=== PATIENT | male | born 1950 | race African-American/Black ===

== ENCOUNTER 2023-07-06 11:54 | Emergency (ER) | payer OTHER ==
[2023-07-06 12:11] VITALS: BMI 23.0
[2023-07-06] MEDS ORDERED: dilTIAZem HCL 50 MG/10 ML - 10 ML VIAL IVPUSH ONE (12:19)
[2023-07-06] MEDS ORDERED: dilTIAZem HCL 50 MG/10 ML - 10 ML VIAL ONE (12:39)
[2023-07-06] MEDS ORDERED: SODIUM CHLORIDE 0.9% 1000 ML INFUS.BAG IV ONE (12:50)
[2023-07-06 12:52] VITALS: RESP 16
[2023-07-06 12:59] LABS: INR 1.28 (0.83-1.09); PROTHROMBIN TIME (PATIENT) 14.8 SEC (9.7-13.0)
[2023-07-06 13:00] LABS: HEMATOCRIT 42.5 % (35.4-49); HEMOGLOBIN 14.2 G/dL (11.7-16.9); MCH 30.5 pg (25.7-33.7); MCHC 33.4 g/dl (32.0-35.9); MEAN CELL VOLUME 91.3 fl (80-96); MEAN PLT VOLUME 9.8 fl (7.5-11.1); PLATELET COUNT 131.4 10^3/uL (134-434); RBC 4.66 10^6/uL (4.00-5.60); RDW 14.1 % (11.9-15.9); WHITE BLOOD COUNT 3.3 10^3/uL (4.0-10.8)
[2023-07-06 13:01] LABS: ALBUMIN 3.8 g/dl (3.4-5.0); BILIRUBIN,TOTAL 0.5 mg/dl (0.2-1); BLOOD UREA NITROGEN 12.7 mg/dl (7-18); CALCIUM 8.4 mg/dl (8.5-10.1); CREATININE 0.9 mg/dl (0.6-1.3); SGOT/AST 46.7 U/L (15-37); TOT PROT 6.3 g/dl (6.4-8.2)
[2023-07-06 13:02] LABS: ACTIVATED PTT 30.9 SECONDS (25.2-36.5)
[2023-07-06 13:19] LABS: PLATELET ESTIMATE SLT DECREASE
[2023-07-06] MEDS ORDERED: dilTIAZem HCL 30 MG TABLET PO ONE (14:05)
[2023-07-06] MEDS ORDERED: dilTIAZem HCL 30 MG TABLET ONE (14:11)
[2023-07-06 16:04] VITALS: BP 133/93; PULSE 117; TEMP 97.8
== END 2023-07-06 16:21 | disposition left against medical advice (07) ==
LOC: FER 11:54
PROC: 3E033GC Introduction of Other Therapeutic Substance into Peripheral Vein, Percutaneous Approach (ICD-10-PCS; principal; 2023-07-06)
DX: R42 Dizziness and giddiness (principal); R00.0 Tachycardia, unspecified; R53.81 Other malaise; R53.83 Other fatigue; I48.91 Unspecified atrial fibrillation; U07.1 COVID-19
CPT/HCPCS: 0241U-QW; 36415; 71045-TC-FY; 80053; 83880; 84484; 85027; 85610; 85730; 93005; 99285-25